=== PATIENT | female | born 1975 | race African-American/Black ===

== ENCOUNTER 2018-03-05 12:29 | Emergency (ER) | payer MEDICAID | END 2018-03-05 12:45 | disposition home or self-care (01) | LOC: ERS 12:29 | DX: Z20.7 Contact with and (suspected) exposure to pediculosis, acariasis and other infestations (principal); G43.909 Migraine, unspecified, not intractable, without status migrainosus; F32.9 Major depressive disorder, single episode, unspecified; Z86.73 Personal history of transient ischemic attack (TIA), and cerebral infarction without residual deficits | CPT/HCPCS: 99282 ==

== ENCOUNTER 2018-04-29 13:02 | Emergency (ER) | payer MEDICAID ==
[2018-04-29 14:23] LABS: Mean Corpuscular HGB CONC 29.4 g/dL (32.0-36.0); Mean Corpuscular Hemoglobin 16.3 pg (27.0-31.0); Mean Corpuscular Volume 55.5 fl (81.0-99.0); Mean Platelet Volume 8.4 fL (7.4-10.4); Platelet Count 462 thou/uL (130-400); RBC Distribution Width 21.7 % (11.5-14.5); White Blood Cell (WBC) Count 7.6 thou/uL (4.8-10.8)
[2018-04-29 14:28] LABS: BHCG - Serum Negative (NEGATIVE); Pregs Control Background? CLEAR/WHITE (CLR/WHITE); Pregs Control Bar Appear? YES (CONTROL BAR)
[2018-04-29 14:29] LABS: PTT 27.1 SEC (22.9-36.1); Prothrombin Time 13.5 SEC (12.0-14.7)
[2018-04-29 14:41] LABS: ALT (SGPT) 8 U/L (8-55); AST (SGOT) 24 U/L (5-34); Alkaline Phosphatase 100 U/L (40-150); Anion Gap 8 mmol/L (10-20); BUN (Urea Nitrogen) 10 mg/dL (7.0-18.7); Bilirubin, Total 0.2 mg/dL (0.2-1.2); Calc. Creatinine Clearance 0 mL/min (70-130); Calcium 9.3 mg/dL (7.8-10.44); Carbon Dioxide 26 mmol/L (22-29); Chloride 106 mmol/L (98-107); Estimated GFR-MDRD Greater than 90; Globulin 4.4 g/dL (2.4-3.5); Glucose 85 mg/dL (70-105); Potassium 3.9 mmol/L (3.5-5.1); Protein, Total 8.4 g/dL (6.0-8.3); Sodium 136 mmol/L (136-145)
[2018-04-29 14:48] LABS: #Eosinphils 0.3 thou/uL (0.0-0.7); #Lymphocytes 1.6 thou/uL (1.20-3.40); #Monocytes 0.5 thou/uL (0.11-0.59); #Neutrophils 5.3 thou/uL (1.40-6.50); %Eosinophils 3.7 % (0.0-10.0); %Lymphocytes 20.3 % (21.0-51.0); %Monocytes 6.3 % (0.0-10.0); %Neutrophils 69.6 % (42.0-75.0); Hypochromia SLIGHT = 6-15 cells (100X) (0-5/hpf); MDiff Complete? YES; Microcytosis MODERATE=15-30 cells (100X) (0-5/hpf); Ovalocytes SLIGHT = 2-5 cells (100X) (0-1/hpf); PLT Morphology Comment Appears Increased; Tear Drops SLIGHT = 2-5 cells (100X) (0-1/hpf)
== END 2018-04-29 15:28 | disposition home or self-care (01) ==
LOC: ERS 13:02
DX: D64.9 Anemia, unspecified (principal); N93.9 Abnormal uterine and vaginal bleeding, unspecified; Z86.73 Personal history of transient ischemic attack (TIA), and cerebral infarction without residual deficits; G43.909 Migraine, unspecified, not intractable, without status migrainosus; F41.9 Anxiety disorder, unspecified; F32.9 Major depressive disorder, single episode, unspecified
CPT/HCPCS: 36415; 80053; 84703; 85025; 85060; 85610; 85730; 86850; 86900; 86901; 93005

== ENCOUNTER 2020-01-07 12:41 | Inpatient (IN) | payer OTHER, SELFPAY ==
[2020-01-07 14:47] LABS: Hemoglobin 4.5 g/dL (12.0-16.0); Mean Corpuscular HGB CONC 28.5 g/dL (32.0-36.0); Mean Corpuscular Hemoglobin 15.3 pg (27.0-31.0); Mean Corpuscular Volume 53.7 fL (78.0-98.0); Mean Platelet Volume 5.7 fL (7.4-10.4); Platelet Count 541 thou/uL (130-400); RBC Distribution Width 25.9 % (11.5-14.5); Red Blood Cell (RBC) Count 2.93 mill/uL (4.20-5.40); White Blood Cell (WBC) Count 13.7 thou/uL (4.8-10.8)
[2020-01-07 14:54] LABS: ALT (SGPT) 8 U/L (8-55); AST (SGOT) 19 U/L (5-34); Albumin 3.6 g/dL (3.5-5.0); Alkaline Phosphatase 73 U/L (40-110); Anion Gap 13 mmol/L (10-20); BUN (Urea Nitrogen) 7 mg/dL (7.0-18.7); Bilirubin, Total 0.7 mg/dL (0.2-1.2); Calc. Creatinine Clearance 0 mL/min (70-130); Calcium 8.8 mg/dL (7.8-10.44); Carbon Dioxide 25 mmol/L (22-29); Chloride 96 mmol/L (98-107); Estimated GFR-MDRD 70; Globulin 4.4 g/dL (2.4-3.5); Glucose 85 mg/dL (70-105); Potassium 3.1 mmol/L (3.5-5.1); Sodium 131 mmol/L (136-145)
[2020-01-07 15:11] LABS: #Lymphocytes 0.8 thou/uL (1.20-3.40); #Monocytes 0.6 thou/uL (0.11-0.59); #Neutrophils 12.3 thou/uL (1.40-6.50); %Eosinophils 0.1 % (0.0-10.0); %Lymphocytes 5.8 % (21.0-51.0); %Monocytes 4.2 % (0.0-10.0); %Neutrophils 89.9 % (42.0-75.0); Band 27 % (5-11); Elliptocytes SLIGHT = 2-5 cells (100X) (0-1/hpf); Hypochromia MODERATE=16-30 cells (100X) (0-5/hpf); Lymphocytes 3 % (21-51); MDiff Complete? YES; Metamyelocyte 1 % (0-0); Microcytosis MODERATE=15-30 cells (100X) (0-5/hpf); Monocytes 6 % (0-10); Neutrophil 62 % (42-75); Nucleated RBC 1 % (0); Platelet Morphology Comment Appears Increased; Polychromasia MARKED = >4 cells (100X) (0-2/hpf); Reflex for Review?? YES; Schistocytes SLIGHT = 2-5 cells (100X) (0-1/hpf); Tear Drops SLIGHT = 2-5 cells (100X) (0-1/hpf)
[2020-01-07] MEDS ORDERED: Cefepime 2 GM VIAL ONE (15:41)
[2020-01-07] MEDS ORDERED: Ondansetron PF 4 MG/2 ML Vial ONE (15:41)
[2020-01-07] MEDS ORDERED: Morphine 4 MG/ML VIAL ONE (15:41)
--- NOTE | 2020-01-07 15:48 | RAD ---
EXAM: CHEST ONE VIEW HISTORY: Flulike symptoms COMPARISON: 04/14/2013 FINDINGS: The cardiac silhouette and pulmonary vasculature is within normal limits. The lungs are clear. The os seous structures are intact. No other interval change. IMPRESSION: No acute cardiopulmonary process.
[2020-01-07] MEDS ORDERED: Potassium Chloride 20 MEQ TAB ONE (15:59)
[2020-01-07 17:05] LABS: Bacteria/HPF 3+ HPF (None Seen); Bilirubin Negative (Negative); Blood, Urine Negative (Negative); Clarity Clear (Clear); Glucose, Urine (Dipstick) Normal (Negative); Leukocyte 500 Leu/uL (Negative); Nitrite Negative (Negative); Protein, Urine (Dipstick) Negative (Neg-Trace); Squamous Epithelial 0-3 HPF (0-3); Urobilinogen Normal mg/dL (Less than 2); WBC/HPF 21-50 HPF (0-3)
[2020-01-07] MEDS ORDERED: Acetaminophen 500 MG TAB ONE (17:26)
[2020-01-07] MEDS ORDERED: Senokot S 8.6-50 MG TAB PO PRN (18:06)
[2020-01-07] MEDS ORDERED: Acetaminophen 325 MG TAB PO PRN (18:06)
[2020-01-07 18:57] LABS: Hemoglobin 4.7 g/dL (12.0-16.0); Mean Corpuscular HGB CONC 30.2 g/dL (32.0-36.0); Mean Corpuscular Hemoglobin 17.9 pg (27.0-31.0); Mean Corpuscular Volume 59.2 fL (78.0-98.0); Mean Platelet Volume 5.9 fL (7.4-10.4); Platelet Count 450 thou/uL (130-400); RBC Distribution Width 31.9 % (11.5-14.5)
[2020-01-07 19:19] LABS: Anisocytosis SLIGHT = 6-15 cells (100X) (0-5/hpf); Band 23 % (5-11); Elliptocytes SLIGHT = 2-5 cells (100X) (0-1/hpf); Helmet Cells SLIGHT = 2-5 cells (100X) (0-1/hpf); Hypochromia MODERATE=16-30 cells (100X) (0-5/hpf); Lymphocytes 10 % (21-51); MDiff Complete? YES; Microcytosis MODERATE=15-30 cells (100X) (0-5/hpf); Monocytes 4 % (0-10); Neutrophil 63 % (42-75); Platelet Morphology Comment Appears Increased; Polychromasia SLIGHT = 2-3 cells (100X) (0-2/hpf); Schistocytes SLIGHT = 2-5 cells (100X) (0-1/hpf); Target Cells SLIGHT = 2-5 cells (100X) (0-1/hpf); Tear Drops SLIGHT = 2-5 cells (100X) (0-1/hpf)
[2020-01-07 21:00] VITALS: BMI 31.8
[2020-01-07] MEDS ORDERED: Iron, Sodium Ferric Gluconate 125 MG in Sodium Chloride 0.9% 100 ML IVPB SCH (21:00)
[2020-01-07] MEDS ORDERED: Ferrous Sulfate 325 MG TAB PO SCH (21:00)
[2020-01-07] MEDS ORDERED: FLU VACC QS2019-20(6MOS UP)/PF 60 MCG/0.5 ML SYRINGE IM ONE (21:15)
[2020-01-07] MEDS: Famotidine/PF 20 mg/2ml Vial SLOW IVP SCH (21:27)
[2020-01-07] MEDS: Docusate 100 MG CAP PO SCH (21:27)
[2020-01-07] MEDS: cefTRIAXone\\ROCEPHIN 1 GM in Sodium Chloride 0.9% 100 ML IVPB SCH (21:28)
[2020-01-07] MEDS: Lice Shampoo 120 ML BOT TOP SCH ×2 (21:41→21:59)
[2020-01-07] MEDS ORDERED: Phenazopyridine HCl 97.5 MG TABLET PO PRN (22:14)
[2020-01-07] MEDS ORDERED: HYDROcodone/Acetaminophen 5/325 mg Tablet PO PRN (22:15)
[2020-01-07] MEDS: HYDROcodone/Acetaminophen 5/325 mg Tablet PO PRN (22:42)
[2020-01-08 00:36] LABS: Mean Corpuscular HGB CONC 29.4 g/dL (32.0-36.0); Mean Corpuscular Hemoglobin 18.8 pg (27.0-31.0); Mean Corpuscular Volume 63.9 fL (78.0-98.0); Mean Platelet Volume 6.1 fL (7.4-10.4); Platelet Count 418 thou/uL (130-400); RBC Distribution Width 32.3 % (11.5-14.5); Red Blood Cell (RBC) Count 3.17 mill/uL (4.20-5.40); White Blood Cell (WBC) Count 11.8 thou/uL (4.8-10.8)
[2020-01-08 00:49] LABS: #Neutrophils 9.8 thou/uL (1.40-6.50); %Basophils 0.1 % (0.0-1.0); %Eosinophils 0.2 % (0.0-10.0); %Lymphocytes 8.7 % (21.0-51.0); Anisocytosis MODERATE=16-30 cells (100X) (0-5/hpf); Elliptocytes SLIGHT = 2-5 cells (100X) (0-1/hpf); Hypochromia MODERATE=16-30 cells (100X) (0-5/hpf); MDiff Complete? YES; Microcytosis MODERATE=15-30 cells (100X) (0-5/hpf); Polychromasia SLIGHT = 2-3 cells (100X) (0-2/hpf); Spherocytes SLIGHT = 1-5 cells (100X) (None Seen); Tear Drops SLIGHT = 2-5 cells (100X) (0-1/hpf)
--- NOTE | 2020-01-08 00:50 | HP ---
CHIEF COMPLAINT: Generalized body aches and pains. HISTORY OF PRESENT ILLNESS: The patient is a 44-year-old female with a history of meningioma and menorrhagia, who presents to the hospital with complaints of generalized body aches and pains. In the ER, she was noted to have a temperature of 103.9. The patient states that she has had problems with anemia for a very long time. She was supposed to follow up with [facility] as an outpatient for possible hysterectomy, but has not done so. The patient states that her symptoms started a couple of days ago, she started feeling unwell at this time. She actually was recently evaluated in [place] and she was told that she does not have a flu, however, she was not treated with any antibiotics. At this time, she was offered blood transfusion given her anemia, hemoglobin of 4. However, she refused, stated that she would follow up with [facility] for further evaluation. While patient was here, while walking, around a turn, she got a little lightheaded, but she never passed out. She denies any chest tightness, any diarrhea, any abdominal pain. PAST MEDICAL HISTORY: She has a history of menorrhagia and also has a history of anemia and also has a history of meningioma. PAST SURGICAL HISTORY: She has had a bilateral tubal ligation in 1996, knee arthroscopy in 1999. REVIEW OF SYSTEMS: All negative except for the ones mentioned in the HPI. CURRENT MEDICATIONS: The patient does not take any home medications. FAMILY HISTORY: Mother has lung cancer. Both parents with diabetes type 2 and hypertension. SOCIAL HISTORY: She denies any alcohol use, drug use, or smoking history. She lives in [place], [place]. PHYSICAL EXAMINATION: VITAL SIGNS: As of the following; her temperature is 98.3, 86, 104/54, 16, 100% on room air. GENERAL: She is awake, alert, and oriented x3. Does not appear in distress. HEENT: Normocephalic, atraumatic. No lymphadenopathy noted. Pupils equal reactive to light. CARDIOVASCULAR: S1 and S2 present. No murmurs, rubs, or gallops. LUNGS: Clear to auscultation. No rhonchi or wheezes noted. ABDOMEN: Soft and nontender. Bowel sounds are present x2. EXTREMITIES: No edema. Pedal pulses are present x2. NEUROVASCULAR: No focal deficits noted. SKIN: No cuts, lesions, or bruises noted. LABORATORY RESULTS: As of the following; WBCs of 13.7, hemoglobin of 4.5, hematocrit of 15.7, her platelets are 541. She does have bands of 27, and also has significant differential including slight histiocytes. Chemistry: Sodium of 131, potassium of 3.1, BUN of 7, creatinine 1.03. Her iron is 10. Her ferritin is 10. Her LFTs are normal. Her total bilirubin is normal also. Her LDH is 196. ASSESSMENT AND PLAN: The patient is. A 44-year-old female who presents to the hospital with complaints of body aches and pains. 1. Possible sepsis. The patient does have a fever and has some bands noted, however, no clear source. She does have some white count of 21 to 50 in the urine and she has some bacteria, however, that would not give her such high fever. Also, her flu swab was negative. She has not had any diarrhea. We will start her on some broad-spectrum antibiotics. We will continue to monitor carefully. Chest x-ray that was done in the ER did not show any acute abnormalities. I will also go ahead and check a procalcitonin on her. 2. Iron deficiency anemia. This most likely secondary to menorrhagia. She states that she normally has five days her menstrual cycle and usually she uses about four packs in those 5 days. The patient is supposed to be following up with [facility], but has not done so. Her previous records indicated that she was on progesterone in the past, however, she currently is not taking it. 3. Mild hypokalemia. We will go ahead and replace it. If not, most likely after she gets blood transfusion that will be replaced. 4. Deep venous thrombosis prophylaxis, we will put the patient on SCDs. Job ID: [id number]
[2020-01-08] MEDS: HYDROcodone/Acetaminophen 5/325 mg Tablet PO PRN ×4 (05:49→20:44)
[2020-01-08 06:03] LABS: Anion Gap 12 mmol/L (10-20); BUN (Urea Nitrogen) 7 mg/dL (7.0-18.7); Calc. Creatinine Clearance 136 mL/min (70-130); Calcium 7.9 mg/dL (7.8-10.44); Carbon Dioxide 22 mmol/L (22-29); Chloride 107 mmol/L (98-107); Estimated GFR-MDRD Greater than 90; Glucose 75 mg/dL (70-105); Potassium 4.2 mmol/L (3.5-5.1); Sodium 137 mmol/L (136-145)
[2020-01-08] MEDS: Famotidine/PF 20 mg/2ml Vial SLOW IVP SCH (08:02)
[2020-01-08] MEDS: Ferrous Sulfate 325 MG TAB PO SCH ×3 (08:02→16:40)
[2020-01-08] MEDS: Lice Shampoo 120 ML BOT TOP SCH (08:03)
[2020-01-08] MEDS: Docusate 100 MG CAP PO SCH ×2 (08:03→20:43)
[2020-01-08 09:04] LABS: Hemoglobin 7.2 g/dL (12.0-16.0)
--- NOTE | 2020-01-08 14:20 | PDOC.HOSPP ---
- Subjective Encounter Date: 01/08/20 Encounter Time: 12:30 Subjective: pt up in bed complains of pain to her epigastric area. - Objective Vital Signs & Weight: Vital Signs (12 hours) Temp Pulse Pulse Resp BP BP Pulse Ox 01/08/20 11:44 98.4 F 78 20 116/75 97 01/08/20 08:00 97 01/08/20 07:41 98.1 F 78 18 113/78 97 01/08/20 05:00 98.2 F 75 18 114/72 100 01/08/20 02:50 98.2 F 72 18 115/74 97 01/08/20 02:35 98.5 F 83 18 113/67 95 Weight Weight 203 lb 4.259 oz I&O: 01/07/20 01/08/20 01/09/20 06:59 06:59 06:59 Intake Total 350 Balance 350 Result Diagrams: 01/08/20 08:50 01/08/20 05:10 Hospitalist ROS - Review of Systems Respiratory: denies: cough, dry, shortness of breath, hemoptysis, SOB with excertion, pleuritic pain, sputum, wheezing, other Cardiovascular: denies: chest pain, palpitations, orthopnea, paroxysmal noc. dyspnea, edema, light headedness, other Gastrointestinal: denies: nausea, vomiting, abdominal pain, diarrhea, constipation, melena, hematochezia, other - Medication Medications: Active Medications Generic Name Dose Route Start Last Admin Trade Name Freq PRN Reason Stop Dose Admin Hydrocodone Bitart/Acetaminophen 2 tab 01/07/20 22:15 01/08/20 11:58 V[place] 5/325 PO 2 tab Q4H PRN Administration Severe Pain (7-10) Docusate Sodium 100 mg 01/07/20 21:00 01/08/20 08:03 Colace PO 100 mg BID ELLE Administration Ferrous Sulfate 325 mg 01/08/20 08:00 01/08/20 11:58 Feosol PO 325 mg TID-WM ELLE Administration Ceftriaxone Sodium 1 gm/ 100 mls @ 200 mls/hr 01/07/20 21:00 01/07/20 21:28 Sodium Chloride IVPB 100 mls 2100 ELLE Administration - Exam Neck: negative: supple, symmetric, no JVD, no thyromegaly, no lymphadenopathy, no carotid bruit, JVD Heart: negative: RRR, no murmur, no gallops, no rubs, normal peripheral pulses, irregular, diminshed peripheral pulses, murmur present, II/IV, III/IV Respiratory: negative: CTAB, no wheezes, no rales, no ronchi, normal chest expansion, no tachypnea, normal percussion, rales, rhonchi, tachypneic, wheezes Gastrointestinal: soft, non-distended Gastrointestinal - other findings: mild epigastric pain on palpation Hosp A/P (1) Fever Code(s): R50.9 - FEVER, UNSPECIFIED Status: Acute (2) Anemia due to blood loss Code(s): D50.0 - IRON DEFICIENCY ANEMIA SECONDARY TO BLOOD LOSS (CHRONIC) Status: Acute (3) Menorrhagia Code(s): N92.0 - EXCESSIVE AND FREQUENT MENSTRUATION WITH REGULAR CYCLE Status : Acute - Plan s/p 2units of prbc, will monitor hh. she has not hade a fever. urine cx is negative. her cxr no acute abnormality. will continue abx for for now.
[2020-01-08] MEDS: cefTRIAXone\\ROCEPHIN 1 GM in Sodium Chloride 0.9% 100 ML IVPB SCH (20:43)
[2020-01-09 05:22] LABS: Mean Corpuscular Volume 67.7 fL (78.0-98.0)
[2020-01-09] MEDS: HYDROcodone/Acetaminophen 5/325 mg Tablet PO PRN (05:25)
[2020-01-09 06:11] LABS: Hemoglobin 6.9 g/dL (12.0-16.0); Mean Corpuscular HGB CONC 31.5 g/dL (32.0-36.0); Mean Corpuscular Hemoglobin 21.3 pg (27.0-31.0); Mean Platelet Volume 5.7 fL (7.4-10.4); Platelet Count 385 thou/uL (130-400); RBC Distribution Width 32.8 % (11.5-14.5); Red Blood Cell (RBC) Count 3.22 mill/uL (4.20-5.40); White Blood Cell (WBC) Count 10.3 thou/uL (4.8-10.8)
[2020-01-09 07:06] LABS: #Eosinphils 0.1 thou/uL (0.0-0.7); #Lymphocytes 1.4 thou/uL (1.20-3.40); #Monocytes 0.9 thou/uL (0.11-0.59); #Neutrophils 7.9 thou/uL (1.40-6.50); %Basophils 0.2 % (0.0-1.0); %Eosinophils 0.8 % (0.0-10.0); %Lymphocytes 13.7 % (21.0-51.0); %Monocytes 8.9 % (0.0-10.0); %Neutrophils 76.3 % (42.0-75.0); Anisocytosis MODERATE=16-30 cells (100X) (0-5/hpf); Elliptocytes SLIGHT = 2-5 cells (100X) (0-1/hpf); Hypochromia SLIGHT = 6-15 cells (100X) (0-5/hpf); MDiff Complete? YES; Platelet Morphology Comment Appears Adequate
[2020-01-09] MEDS: Ferrous Sulfate 325 MG TAB PO SCH ×3 (08:09→17:21)
[2020-01-09] MEDS: Docusate 100 MG CAP PO SCH ×2 (08:09→21:03)
[2020-01-09] MEDS ORDERED: Iron Sucrose Complex 100 MG in Sodium Chloride 0.9% 100 ML IVPB SCH (09:15)
[2020-01-09] MEDS ORDERED: Iron, Sodium Ferric Gluconate 125 MG in Sodium Chloride 0.9% 100 ML IVPB SCH ×2 (09:30→15:00)
--- NOTE | 2020-01-09 14:49 | PDOC.HOSPP ---
- Subjective Encounter Date: 01/09/20 Encounter Time: 11:45 Subjective: pt up in chair very emotional and start crying when asked how she is doing. Pt states that she has no place to go after her discharge. She further states that she has an exboyfriend who is willing to take her if she she is intimate with him. - Objective Vital Signs & Weight: Vital Signs (12 hours) Temp Pulse Resp BP BP Pulse Ox 01/09/20 11:38 98.5 F 73 16 111/72 01/09/20 08:00 97 01/09/20 07:44 98.4 F 66 16 115/75 97 Weight Weight 203 lb 4.259 oz I&O: 01/08/20 01/09/20 01/10/20 06:59 06:59 06:59 Intake Total 350 1000 240 Balance 350 1000 240 Result Diagrams: 01/09/20 04:40 01/08/20 05:10 Hospitalist ROS - Review of Systems Cardiovascular: denies: chest pain, palpitations, orthopnea, paroxysmal noc. dyspnea, edema, light headedness, other Gastrointestinal: denies: nausea, vomiting, abdominal pain, diarrhea, constipation, melena, hematochezia, other Genitourinary: denies: dysuria, frequency, incontinence, hematuria, retention, other - Medication Medications: Active Medications Generic Name Dose Route Start Last Admin Trade Name Freq PRN Reason Stop Dose Admin Acetaminophen 650 mg 01/07/20 18:06 01/09/20 11:23 Tylenol PO 650 mg Q4H PRN Administration Headache/Fever/Mild Pain (1-3) Hydrocodone Bitart/Acetaminophen 2 tab 01/07/20 22:15 01/09/20 05:25 [place] 5/325 PO 2 tab Q4H PRN Administration Severe Pain (7-10) Docusate Sodium 100 mg 01/07/20 21:00 01/09/20 08:09 Colace PO 100 mg BID ELLE Administration Ferrous Sulfate 325 mg 01/08/20 08:00 01/09/20 11:23 Feosol PO 325 mg TID-WM ELLE Administration Ceftriaxone Sodium 1 gm/ 100 mls @ 200 mls/hr 01/07/20 21:00 01/08/20 20:43 Sodium Chloride IVPB 100 mls 2100 ELLE Administration Pantoprazole Sodium 40 mg 01/08/20 21:00 01/09/20 08:09 Protonix PO 40 mg BID ELLE Administration Senna/Docusate Sodium 2 tab 01/07/20 18:06 01/09/20 08:08 Senokot S PO 2 tab BIDPRN PRN Administration Constipation - Exam Heart: negative: RRR, no murmur, no gallops, no rubs, normal peripheral pulses, irregular, diminshed peripheral pulses, murmur present, II/IV, III/IV Respiratory: negative: CTAB, no wheezes, no rales, no ronchi, normal chest expansion, no tachypnea, normal percussion, rales, rhonchi, tachypneic, wheezes Gastrointestinal: negative: soft, non-tender, non-distended, normal bowel sounds , no palpable masses, no hepatomegaly, no splenomegaly, no bruit, no guarding, no rigidity, tender to palpation, distended, diminished bowl sounds, voluntary guarding Extremities: negative: no cyanosis, no clubbing, no edema, 1+ LE edema, 2+ LE edema, clubbing Hosp A/P (1) Fever Code(s): R50.9 - FEVER, UNSPECIFIED Status: Acute (2) Anemia due to blood loss Code(s): D50.0 - IRON DEFICIENCY ANEMIA SECONDARY TO BLOOD LOSS (CHRONIC) Status: Acute (3) Menorrhagia Code(s): N92.0 - EXCESSIVE AND FREQUENT MENSTRUATION WITH REGULAR CYCLE Status : Acute - Plan s/p 2units of prbc, will monitor hh. she has not hade a fever. urine cx is negative. her cxr no acute abnormality. will continue abx for for now. 01/09 will give her another dose of iv iron. will transfuse if hh <7. will get social work consult to aid with housing. pt feels depressed, she is not suicidal and is wanting to talk with [facility].
[2020-01-10] MEDS ORDERED: diphenhydrAMINE 25 MG CAP PO PRN (00:24)
[2020-01-10 06:23] LABS: Mean Corpuscular HGB CONC 30.6 g/dL (32.0-36.0); Mean Corpuscular Hemoglobin 20.8 pg (27.0-31.0); Mean Platelet Volume 5.8 fL (7.4-10.4); Platelet Count 401 thou/uL (130-400); RBC Distribution Width 33.7 % (11.5-14.5); Red Blood Cell (RBC) Count 3.34 mill/uL (4.20-5.40); White Blood Cell (WBC) Count 7.6 thou/uL (4.8-10.8)
[2020-01-10 06:43] LABS: #Eosinphils 0.1 thou/uL (0.0-0.7); #Lymphocytes 1.5 thou/uL (1.20-3.40); #Monocytes 0.5 thou/uL (0.11-0.59); #Neutrophils 5.6 thou/uL (1.40-6.50); %Eosinophils 0.8 % (0.0-10.0); %Lymphocytes 19.2 % (21.0-51.0); %Monocytes 6.1 % (0.0-10.0); %Neutrophils 73.9 % (42.0-75.0); Anisocytosis MODERATE=16-30 cells (100X) (0-5/hpf); Hypochromia SLIGHT = 6-15 cells (100X) (0-5/hpf); MDiff Complete? YES; Microcytosis MODERATE=15-30 cells (100X) (0-5/hpf); Polychromasia SLIGHT = 2-3 cells (100X) (0-2/hpf); Spherocytes SLIGHT = 1-5 cells (100X) (None Seen); Tear Drops SLIGHT = 2-5 cells (100X) (0-1/hpf)
[2020-01-10 07:07] VITALS: BP 148/57; TEMP 98.5
[2020-01-10] MEDS: Ferrous Sulfate 325 MG TAB PO SCH (08:19)
[2020-01-10] MEDS: Docusate 100 MG CAP PO SCH (08:24)
--- NOTE | 2020-01-11 07:28 | PQF ---
Ricardo Knowles Grady SHLOMO BASILIO [id number] CLINICAL DOCUMENTATION CLARIFICATION FORM: POST DISCHARGE Addendum to original discharge summary date: ____ Late entry note date: __ DATE: 01/11/2020 ATTN:SHLOMO BASILIO Please exercise your independent, professional judgment in responding to the clarification form. Clinical indicators are provided on the bottom of this form for your review Please check appropriate box(s) to clarify if the following diagnosis has been ruled in or ruled out: Sepsis [ ] Ruled in diagnosis [ ] Continue to treat [ ] Resolved [ x ] Ruled out diagnosis [ ] Cannot rule out diagnosis [ ] Other diagnosis [ ] Unable to determine For continuity of documentation, please document condition throughout progress notes and discharge summary. Thank You. CLINICAL INDICATORS - SIGNS / SYMPTOMS / LABS - Fever, sepsis- ED record, 01/07, Pascual Hart MD - Temp: 103.1, RR:21, Pulse: 135- ED record, 01/07, Pascual Hart MD - tachycardic- ED record, 01/07, Pascual Hart MD - possible sepsis- H&P, 01/07, Shlomo Basilio MD - however no source, she does have some WBC of 21 to 50 in the urine and she has some bacteria- H&P, 01/07, Shlomo Basilio MD RISK FACTORS - Iron deficiency anemia- H&P, 01/07, Shlomo Basilio MD - Fever- H&P, Hospital PN, 01/08, Shlomo Basilio MD TREATMENTS -Cefepime.IV- [facility], 01/07 -Rocephin.IV- [facility], 01/07 [employer](This form is maintained as a part of the permanent medical record) 2014 [employer]. All Rights Reserved [employer]
== END 2020-01-10 09:02 | disposition left against medical advice (07) | DRG 812 ==
LOC: ERS 12:41 → T4-B 17:32
PROVIDERS: ADMIT Internal Medicine; ATTEND Internal Medicine
PROC: 30233N1 Transfusion of Nonautologous Red Blood Cells into Peripheral Vein, Percutaneous Approach (ICD-10-PCS; principal; 2020-01-07)
DX: D50.0 Iron deficiency anemia secondary to blood loss (chronic) (principal); F41.9 Anxiety disorder, unspecified; F32.9 Major depressive disorder, single episode, unspecified; N92.0 Excessive and frequent menstruation with regular cycle; E87.6 Hypokalemia; Z88.2 Allergy status to sulfonamides; Z88.8 Allergy status to other drugs, medicaments and biological substances; Z86.73 Personal history of transient ischemic attack (TIA), and cerebral infarction without residual deficits; Z98.51 Tubal ligation status
CPT/HCPCS: 36415; 36430; 71045; 80048; 80053; 80307; 81003; 81015; 82728; 83540; 83605; 83615; 85025; 85060; 86850; 86900; 86901; 87040; 87086; 87804; 93005; 96365; 96366; 96367; 96375; J0692; J0696; J2270; J2405; J2916; J3370; J3490; J7050; P9016; Q0163; S0028

== ENCOUNTER 2022-01-24 14:33 | Inpatient (IN) | payer MEDICAID, OTHER ==
[~2022-01-24 14:33] MED LIST: Iopamidol-370 76% 500 ML 1 ML ONE
[2022-01-24 15:11] LABS: #Eosinphils 0.1 thou/uL (0.0-0.7); #Lymphocytes 1.4 thou/uL (1.20-3.40); #Monocytes 0.6 thou/uL (0.11-0.59); #Neutrophils 3.7 thou/uL (1.40-6.50); %Eosinophils 2.6 % (0.0-10.0); %Lymphocytes 23.5 % (21.0-51.0); %Monocytes 9.7 % (0.0-10.0); %Neutrophils 64.3 % (42.0-75.0); Hemoglobin 3.7 g/dL (12.0-16.0); Mean Corpuscular Hemoglobin 15.2 pg (27.0-31.0); Mean Corpuscular Volume 56.2 fL (78.0-98.0); Platelet Count 839 thou/uL (130-400); RBC Distribution Width 33.6 % (11.5-14.5); Red Blood Cell (RBC) Count 2.43 mill/uL (4.20-5.40); White Blood Cell (WBC) Count 5.8 thou/uL (4.8-10.8)
[2022-01-24 15:23] LABS: INR-International Normal Ratio 1.1; PTT 29.3 sec (22.9-36.1); Prothrombin Time 14.4 sec (12.0-14.7)
[2022-01-24 15:30] LABS: ALT (SGPT) Less than 7 U/L (8-55); AST (SGOT) 20 U/L (5-34); Albumin 3.8 g/dL (3.5-5.0); Alkaline Phosphatase 74 U/L (40-110); Anion Gap 12 mmol/L (10-20); BUN (Urea Nitrogen) 7 mg/dL (7.0-18.7); Bilirubin, Total 0.4 mg/dL (0.2-1.2); Calc. Creatinine Clearance 0 mL/min (70-130); Calcium 8.7 mg/dL (7.8-10.44); Carbon Dioxide 22 mmol/L (22-29); Chloride 106 mmol/L (98-107); Globulin 3.9 g/dL (2.4-3.5); Glucose 87 mg/dL (70-105); Potassium 3.8 mmol/L (3.5-5.1); Protein, Total 7.7 g/dL (6.0-8.3); Sodium 136 mmol/L (136-145)
[2022-01-24 15:34] LABS: Anisocytosis MODERATE=16-30 cells (100X) (0-5/hpf); Elliptocytes SLIGHT = 2-5 cells (100X) (0-1/hpf); Hypochromia MODERATE=16-30 cells (100X) (0-5/hpf); MDiff Complete? YES; Microcytosis MODERATE=15-30 cells (100X) (0-5/hpf); Ovalocytes SLIGHT = 2-5 cells (100X) (0-1/hpf); Platelet Morphology Comment Appears Increased; Poikilocytosis SLIGHT = 6-15 cells (100X) (0-5/hpf); Polychromasia SLIGHT = 2-3 cells (100X) (0-2/hpf); Reflex for Review?? NO; Schistocytes SLIGHT = 2-5 cells (100X) (0-1/hpf); Stomatocytes SLIGHT = 2-5 cells (100X) (0-1/hpf); Target Cells SLIGHT = 2-5 cells (100X) (0-1/hpf); Tear Drops MODERATE= 6-15 cells (100X) (0-1/hpf)
[2022-01-24 15:44] LABS: BHCG - Serum Negative (NEGATIVE); Pregs Control Background? CLEAR/WHITE (CLR/WHITE); Pregs Control Bar Appear? YES (CONTROL BAR)
[2022-01-24 16:09] LABS: INR-International Normal Ratio 1.1; PTT 31.5 sec (22.9-36.1); Prothrombin Time 14.2 sec (12.0-14.7)
[2022-01-24 16:19] LABS: #Eosinphils 0.1 thou/uL (0.0-0.7); #Lymphocytes 1.2 thou/uL (1.20-3.40); #Monocytes 0.4 thou/uL (0.11-0.59); #Neutrophils 3.6 thou/uL (1.40-6.50); %Basophils 0.2 % (0.0-1.0); %Eosinophils 2.4 % (0.0-10.0); %Lymphocytes 22.8 % (21.0-51.0); %Monocytes 7.5 % (0.0-10.0); %Neutrophils 67.1 % (42.0-75.0); Hemoglobin 4.1 g/dL (12.0-16.0); Mean Corpuscular Hemoglobin 15.6 pg (27.0-31.0); Mean Corpuscular Volume 55.8 fL (78.0-98.0); Mean Platelet Volume 5.2 fL (7.4-10.4); Platelet Count 788 thou/uL (130-400); RBC Distribution Width 33.3 % (11.5-14.5); White Blood Cell (WBC) Count 5.3 thou/uL (4.8-10.8)
[2022-01-24] MEDS ORDERED: Ondansetron PF 4 MG/2 ML Vial IVP PRN (16:54)
[2022-01-24] MEDS ORDERED: hydrALAZINE 20 MG/ML VIAL SLOW IVP PRN (16:54)
[2022-01-24] MEDS ORDERED: Lorazepam 0.5 MG TAB PO PRN (16:54)
[2022-01-24] MEDS ORDERED: Ondansetron ODT 4 MG TAB PO PRN (16:54)
[2022-01-24] MEDS: Famotidine 20 MG TAB PO SCH (21:16)
[2022-01-25 01:00] LABS: Hemoglobin 6.1 g/dL (12.0-16.0); Platelet Count 591 thou/uL (130-400)
[2022-01-25 05:37] LABS: #Eosinphils 0.1 thou/uL (0.0-0.7); #Lymphocytes 1.6 thou/uL (1.20-3.40); #Monocytes 0.5 thou/uL (0.11-0.59); #Neutrophils 3.8 thou/uL (1.40-6.50); %Basophils 0.5 % (0.0-1.0); %Lymphocytes 26.9 % (21.0-51.0); %Monocytes 7.9 % (0.0-10.0); %Neutrophils 62.7 % (42.0-75.0); Hemoglobin 6.2 g/dL (12.0-16.0); Mean Corpuscular HGB CONC 31.3 g/dL (32.0-36.0); Mean Corpuscular Hemoglobin 20.8 pg (27.0-31.0); Mean Corpuscular Volume 66.3 fL (78.0-98.0); Mean Platelet Volume 4.9 fL (7.4-10.4); Platelet Count 566 thou/uL (130-400); RBC Distribution Width 34.9 % (11.5-14.5); Red Blood Cell (RBC) Count 2.96 mill/uL (4.20-5.40)
[2022-01-25 06:02] LABS: Anion Gap 9 mmol/L (10-20); BUN (Urea Nitrogen) 9 mg/dL (7.0-18.7); Calc. Creatinine Clearance 125 mL/min (70-130); Calcium 8.7 mg/dL (7.8-10.44); Carbon Dioxide 23 mmol/L (22-29); Chloride 108 mmol/L (98-107); Glucose 91 mg/dL (70-105); Potassium 3.9 mmol/L (3.5-5.1); Sodium 136 mmol/L (136-145)
[2022-01-25] MEDS: Acetaminophen 325 MG TAB PO PRN (08:14)
[2022-01-25] MEDS: Famotidine 20 MG TAB PO SCH ×2 (08:15→20:45)
[2022-01-25] MEDS ORDERED: Morphine 4 MG/ML VIAL SLOW IVP SCH (13:00)
[2022-01-25 17:25] LABS: Hemoglobin 7.7 g/dL (12.0-16.0)
[2022-01-26 08:01] LABS: #Eosinphils 0.2 thou/uL (0.0-0.7); #Lymphocytes 1.4 thou/uL (1.20-3.40); #Monocytes 0.5 thou/uL (0.11-0.59); #Neutrophils 4.2 thou/uL (1.40-6.50); %Basophils 0.3 % (0.0-1.0); %Eosinophils 2.7 % (0.0-10.0); %Lymphocytes 22.5 % (21.0-51.0); %Monocytes 7.4 % (0.0-10.0); %Neutrophils 67.1 % (42.0-75.0); Hemoglobin 7.6 g/dL (12.0-16.0); Mean Corpuscular HGB CONC 30.1 g/dL (32.0-36.0); Mean Corpuscular Hemoglobin 21.2 pg (27.0-31.0); Mean Corpuscular Volume 70.5 fL (78.0-98.0); Mean Platelet Volume 6.3 fL (7.4-10.4); Platelet Count 591 thou/uL (130-400); RBC Distribution Width 35.1 % (11.5-14.5); Red Blood Cell (RBC) Count 3.59 mill/uL (4.20-5.40); White Blood Cell (WBC) Count 6.2 thou/uL (4.8-10.8)
[2022-01-26] MEDS: Famotidine 20 MG TAB PO SCH (08:33)
[2022-01-26] MEDS: Acetaminophen 325 MG TAB PO PRN (09:13)
[2022-01-26 11:58] VITALS: BP 138/76; TEMP 98.2
[2022-01-27] MEDS ORDERED: FLU VACC QS2021-22(6MOS UP)/PF 60 MCG/0.5 ML SYRINGE IM ONE (09:00)
== END 2022-01-26 12:00 | disposition home or self-care (01) | DRG 812 ==
LOC: ERS 14:33 → NEURO 16:04
PROVIDERS: ADMIT Internal Medicine; ATTEND Internal Medicine
PROC: 30233N1 Transfusion of Nonautologous Red Blood Cells into Peripheral Vein, Percutaneous Approach (ICD-10-PCS; principal; 2022-01-24)
DX: D62 Acute posthemorrhagic anemia (principal); G43.909 Migraine, unspecified, not intractable, without status migrainosus; K21.9 Gastro-esophageal reflux disease without esophagitis; F41.9 Anxiety disorder, unspecified; F32.A Depression, unspecified; N92.0 Excessive and frequent menstruation with regular cycle; D32.9 Benign neoplasm of meninges, unspecified; Z86.73 Personal history of transient ischemic attack (TIA), and cerebral infarction without residual deficits; Z98.51 Tubal ligation status; Z88.2 Allergy status to sulfonamides
CPT/HCPCS: 36415; 36416; 36430; 70450; 70496; 70498; 71045; 80048; 80053; 84484; 84703; 85025; 85610; 85730; 86850; 86900; 86901; 93005; 94760; J2270; P9016; Q9967

== ENCOUNTER 2022-03-02 16:24 | Emergency (ER) | payer OTHER | END 2022-03-02 16:48 | disposition left against medical advice (07) | LOC: ERS 16:24 | DX: Z53.21 Procedure and treatment not carried out due to patient leaving prior to being seen by health care provider (principal) ==

== ENCOUNTER 2022-03-20 13:36 | Emergency (ER) | payer OTHER ==
[2022-03-20] MEDS ORDERED: Morphine 4 MG/ML VIAL ONE (14:28)
[2022-03-20] MEDS ORDERED: Ondansetron PF 4 MG/2 ML Vial ONE (14:29)
[2022-03-20 14:55] LABS: BHCG - Serum Negative (NEGATIVE); Bacteria/HPF None Seen HPF (None Seen); Bilirubin Negative (Negative); Blood, Urine Negative (Negative); Clarity Clear (Clear); Glucose, Urine (Dipstick) Normal (Negative); Ketone, Urine Negative (Negative); Leukocyte 75 Leu/uL (Negative); Nitrite Negative (Negative); Pregs Control Background? CLEAR/WHITE (CLR/WHITE); Pregs Control Bar Appear? YES (CONTROL BAR); Protein, Urine (Dipstick) Negative (Neg-Trace); RBC/HPF 0-3 HPF (0-3); Specific Gravity, Urine 1.019 (1.002-1.036); Urobilinogen Normal mg/dL (Less than 2)
[2022-03-20 14:56] LABS: #Eosinphils 0.2 thou/uL (0.0-0.7); #Lymphocytes 1.2 thou/uL (1.20-3.40); #Monocytes 0.6 thou/uL (0.11-0.59); #Neutrophils 6.9 thou/uL (1.40-6.50); %Basophils 0.3 % (0.0-1.0); %Eosinophils 1.8 % (0.0-10.0); %Lymphocytes 13.5 % (21.0-51.0); %Monocytes 6.3 % (0.0-10.0); %Neutrophils 78.1 % (42.0-75.0); Mean Corpuscular Hemoglobin 18.6 pg (27.0-31.0); Mean Corpuscular Volume 62.1 fL (78.0-98.0); RBC Distribution Width 28.4 % (11.5-14.5); Red Blood Cell (RBC) Count 3.78 mill/uL (4.20-5.40); White Blood Cell (WBC) Count 8.9 thou/uL (4.8-10.8)
[2022-03-20 14:58] LABS: ALT (SGPT) Less than 7 U/L (8-55); AST (SGOT) 18 U/L (5-34); Albumin 3.9 g/dL (3.5-5.0); Alkaline Phosphatase 81 U/L (40-110); Anion Gap 10 mmol/L (10-20); BUN (Urea Nitrogen) 10 mg/dL (7.0-18.7); Bilirubin, Total 0.3 mg/dL (0.2-1.2); Calc. Creatinine Clearance 0 mL/min (70-130); Calcium 8.8 mg/dL (7.8-10.44); Carbon Dioxide 25 mmol/L (22-29); Chloride 105 mmol/L (98-107); Globulin 4.3 g/dL (2.4-3.5); Glucose 72 mg/dL (70-105); Lipase 64 U/L (8-78); Potassium 3.8 mmol/L (3.5-5.1); Protein, Total 8.2 g/dL (6.0-8.3); Sodium 136 mmol/L (136-145)
[2022-03-20 15:02] LABS: Anisocytosis MODERATE=16-30 cells (100X) (0-5/hpf); Burr Cells SLIGHT = 2-5 cells (100X) (0-1/hpf); Hypochromia MODERATE=16-30 cells (100X) (0-5/hpf); MDiff Complete? YES; Mean Platelet Volume 6.7 fL (7.4-10.4); Microcytosis MODERATE=15-30 cells (100X) (0-5/hpf); Ovalocytes MODERATE= 6-15 cells (100X) (0-1/hpf); Platelet Count 475 thou/uL (130-400); Platelet Morphology Comment Appears Increased; Polychromasia SLIGHT = 2-3 cells (100X) (0-2/hpf); Stomatocytes SLIGHT = 2-5 cells (100X) (0-1/hpf)
== END 2022-03-20 19:37 | disposition home or self-care (01) ==
LOC: ERS 13:36
DX: N83.201 Unspecified ovarian cyst, right side (principal); D25.9 Leiomyoma of uterus, unspecified; M62.838 Other muscle spasm; D64.9 Anemia, unspecified; Z86.73 Personal history of transient ischemic attack (TIA), and cerebral infarction without residual deficits
CPT/HCPCS: 36415; 36430; 74177; 80053; 81003; 81015; 83605; 83690; 84703; 85025; 86850; 86900; 86901; 96374; 96375; J2270; J2405; P9016; Q9967